=== PATIENT | female | born 1950 | race Caucasian/White ===

== ENCOUNTER → 2016-08-28 | Outpatient (CLI) | payer OTHER | END | disposition home or self-care (01) | LOC: AMB 08-27 14:00 | DX: R15.2 Fecal urgency (principal); R32 Unspecified urinary incontinence; Z98.890 Other specified postprocedural states; M43.16 Spondylolisthesis, lumbar region; M48.06 Spinal stenosis, lumbar region; Z98.1 Arthrodesis status | CPT/HCPCS: 62304; 72132 ==